=== PATIENT | female | born 1950 | race African-American/Black ===

== ENCOUNTER 2016-09-07 20:42 | Emergency (ER) | payer MEDICAID, OTHER ==
[~2016-09-07] VITALS: Ht 162.6 cm; Wt 104.0 kg
[~2016-09-07 20:42] MED LIST: ADVAIR; METFORMIN; MOTRIN; NEBULIZER; PRO AIR; SPIRIVA; ZOCOR
[2016-09-08] MEDS ORDERED: HYDROXYZINE 25MG TABLET PO ONE (00:15)
[2016-09-08 00:25] VITALS: BP 148/77
== END 2016-09-08 01:20 | disposition home or self-care (01) ==
LOC: ER 20:42
DX: L29.9 Pruritus, unspecified (principal); Z88.5 Allergy status to narcotic agent; Z79.899 Other long term (current) drug therapy; Z86.2 Personal history of diseases of the blood and blood-forming organs and certain disorders involving the immune mechanism
CPT/HCPCS: 99283; J7030; Z7610